=== PATIENT | female | born 1965 | race Caucasian/White ===

== ENCOUNTER 2016-10-19 07:57 | Day surgery (SDC) | payer BC ==
[~2016-10-19] VITALS: Ht 172.7 cm; Wt 60.4 kg
[~2016-10-19 07:57] MED LIST: IBUPROFEN200 M2 PO; TRAMADOL HCL50 MG PO
[2016-10-19 09:04] LABS: BASO % 0.6 % (0-2); EOS % 1.5 % (0-7); EOSINOPHIL ABSOLUTE COUNT 0.1 tho/cmm (0.0-0.7); HCT-HEMATOCRIT 36.4 % (34.0-49.0); LYMPH % 32.5 % (20-45); LYMPH ABSOLUTE COUNT 1.1 tho/cmm (0.8-4.5); MCHC MEAN CORPUSCULAR HGB CONC 35.7 % (32.0-36.0); MCV (MEAN CELL VOLUME) 112.7 fl (82.0-96.0); MEAN PLATELET VOLUME 8.7 cmc (9.4-12.4); MONO % 9.6 % (0-12); MONOCYTE ABSOLUTE COUNT 0.3 tho/cmm (0.0-1.2); NEUTROPHIL ABSOLUTE COUNT 1.9 tho/cmm (1.6-8.0); NEUTROPHIL-AUTOMATED 1.9 tho/cmm (1.6-8.0); NEUTROPHILS % 55.8 % (40-80); PLATELET COUNT 196 tho/cmm (150-450); RED BLOOD COUNT 3.23 mil/cmm (4.00-5.20); RED CELL DISTRIBUTION WIDTH 14.6 % (12.4-16.4); WHITE BLOOD COUNT 3.4 tho/cmm (4.0-10.0)
[2016-10-19 09:06] LABS: PROTHROMBIN TIME 11.4 SECONDS (9.0-13.6)
[2016-10-19 09:09] LABS: MCH (MEAN CORPUSCULAR HGB) 40.2 pg (28.0-32.0)
== END 2016-10-19 13:25 ==
LOC: US 07:57 → SHSB 07:57 → US 08:15 → CTSCAN 10:30 → US 13:25
PROVIDERS: Radiology Diagnostic Radiology
PROC: 0FB23ZX Excision of Left Lobe Liver, Percutaneous Approach, Diagnostic (ICD-10-PCS; principal; 2016-10-19)
DX: K75.81 Nonalcoholic steatohepatitis (NASH) (principal); K74.0 Hepatic fibrosis
CPT/HCPCS: J3010; J7030